=== PATIENT | female | born 1955 | race Hispanic/Latino ===

== ENCOUNTER 2024-08-10 08:26 | Day surgery (SDC) | payer MEDICARE ==
[~2024-08-10] VITALS: Ht 154.9 cm; Wt 42.2 kg
[~2024-08-10 08:26] MED LIST: CARAFATE PO; CLONAZEPAM0.5 M1 PO; PROTONIX40 M2 PO; [UNRECOGNIZED DRUG - OTHER]
[2024-08-10] MEDS ORDERED: LACTATED RINGER'S 1,000 ML IV ONE (08:29)
[2024-08-10] MEDS ORDERED: METOCLOPRAMIDE HCL 10 MG/2 ML SDV ONE (08:29)
[2024-08-10] MEDS ORDERED: FAMOTIDINE 10MG/ML 2ML SDV IV ONE (08:29)
[2024-08-10] MEDS ORDERED: CARAFATE1 GM/10 M1 PO (10:26)
[2024-08-10 11:01] VITALS: BP 102/53
== END 2024-08-10 11:15 | disposition home or self-care (01) ==
LOC: ENDO 08:26 → ORM 09:00 → ENDO 09:00
PROVIDERS: ATTEND Surgery
PROC: 0DB48ZX Excision of Esophagogastric Junction, Via Natural or Artificial Opening Endoscopic, Diagnostic (ICD-10-PCS; principal; 2024-08-10)
PROC: 0DB68ZX Excision of Stomach, Via Natural or Artificial Opening Endoscopic, Diagnostic (ICD-10-PCS; 2024-08-10)
DX: K21.9 Gastro-esophageal reflux disease without esophagitis (principal); K29.70 Gastritis, unspecified, without bleeding; B96.81 Helicobacter pylori [H. pylori] as the cause of diseases classified elsewhere; K44.9 Diaphragmatic hernia without obstruction or gangrene; Z90.49 Acquired absence of other specified parts of digestive tract
CPT/HCPCS: J2765